=== PATIENT | female | born 1975 | race Caucasian/White ===

== ENCOUNTER → 2017-06-21 | Outpatient (CLI) | payer OTHER ==
--- NOTE | 2017-06-21 17:13 | RADIOLOGY REPORT (SQ) ---
EXAM DESCRIPTION: NM HIDA SCAN WITH CCK COMPLETED DATE/TIME: 06/21/2017 3:43 pm REASON FOR STUDY: ABD PAIN (R10.9) R10.9 UNSPECIFIED ABDOMINAL PAIN COMPARISON: Abdominal ultrasound 02/16/2016 RADIONUCLIDE AND DOSE: DOSAGE RADIONUCLIDE: 4.5 millicuries Tc99m Mebrofenin. DOSAGE CCK: 1.2 mcg DOSAGE MORPHINE: Not required. The route of agent administration: Intravenous TECHNIQUE: Serial imaging right upper quadrant up to 60 minutes following injection of radionuclide. CCK injected after gallbladder visualized. LIMITATIONS: None. FINDINGS: LIVER: Normal visualization without areas of photopenia. INTRAHEPATIC BILE DUCTS: Normal size and no delay in visualization. COMMON BILE DUCT: Normal visualization. GALLBLADDER: Normal visualization. Calculated ejection fraction of 16%. Normal range is greater th an 35%. PHYSICAL RESPONSE: Patients presenting complaint was reproduced. OTHER: No other significant finding. IMPRESSION: NO CYSTIC OR COMMON DUCT OBSTRUCTION. DEPRESSED GALLBLADDER EJECTION FRACTION. BILIARY DYSKINESIS. IV CHOLECYSTOKININ REPRODUCED THE PATIENT'S SYMPTOMS TECHNICAL DOCUMENTATION: JOB ID: [id number]- All Rights Reserved
== END ==
LOC: RAD 12:24
PROVIDERS: ATTEND Internal Medicine Gastroenterology
DX: R10.9 Unspecified abdominal pain (principal)
CPT/HCPCS: 78227; A9537; Q9969; J2805

== ENCOUNTER 2018-05-08 05:23 | Day surgery (SDC) | payer OTHER ==
[2018-05-05 10:40] LABS: HEMATOCRIT 42.4 % (36.0-47.0); HEMOGLOBIN 14.4 g/dL (12.0-15.5); MEAN CORPUSCULAR VOLUME 94 fl (80-97); PLATELET COUNT 310 10^3/uL (150-450); RED CELL DISTRIBUTION WIDTH 13.8 % (11.5-14.0); WHITE BLOOD COUNT 10.1 10^3/uL (4.0-10.5)
[2018-05-05 10:58] LABS: ALANINE AMINOTRANSFERASE 40 U/L (9-52); ALBUMIN 4.7 g/dL (3.5-5.0); ALKALINE PHOSPHATASE 88 U/L (38-126); ANION GAP 13 (5-19); ASPARTATE AMINO TRANSFERASE 34 U/L (14-36); BILIRUBIN,DIRECT 0.3 mg/dL (0.0-0.4); BILIRUBIN,TOTAL 0.5 mg/dL (0.2-1.3); BLOOD UREA NITROGEN 13 mg/dL (7-20); CALCIUM 9.8 mg/dL (8.4-10.2); CARBON DIOXIDE 26 mmol/L (22-30); CHLORIDE 105 mmol/L (98-107); GLUCOSE 85 mg/dL (75-110); POTASSIUM 4.3 mmol/L (3.6-5.0); SODIUM 143.7 mmol/L (137-145); TOTAL PROTEIN 7.7 g/dL (6.3-8.2)
[~2018-05-08 05:23] MED LIST: LACTATED RINGERS 1000 ML IV PRN; LIDOCAINE 0.5% INJ-PF (5 MG/ML) 50 ML SDV SUBCUT PRN
[2018-05-08] MEDS ORDERED: CEFAZOLIN 2 GM/D5W RTU 2 GM/50 ML RTUPB IV ONE (05:34)
[2018-05-08] MEDS ORDERED: BUPIVACAINE HCL 0.25 % INJ/PF (2.5 MG/1 ML) 30 ML VIAL ONE ×2 (06:36→09:50)
[2018-05-08] MEDS ORDERED: HYDROMORPHONE HCL INJ/PF 2 MG/ML AMPULE ONE (07:25)
[2018-05-08] MEDS ORDERED: ACETAMINOPHEN 1,000 MG/100 ML RTUPB IV ONE (07:25)
[2018-05-08] MEDS ORDERED: PROPOFOL INJ 200 MG/20 ML VIAL IV ONE (07:25)
[2018-05-08] MEDS ORDERED: ONDANSETRON HCL INJ/PF 4 MG/2 ML SDV ONE ×2 (07:25→14:36)
[2018-05-08] MEDS ORDERED: MIDAZOLAM 2 MG/2 ML INJ ONE (07:25)
[2018-05-08] MEDS ORDERED: EPHEDRINE SULFATE INJ 50 MG/1 ML AMPULE ONE (07:25)
[2018-05-08] MEDS ORDERED: METHYLENE BLUE 50 MG/10 ML AMPULE ONE (09:04)
[2018-05-08] MEDS ORDERED: FENTANYL CITRATE INJ/PF 100 MCG/2 ML AMPUL IV PRN ×3 (09:32)
[2018-05-08] MEDS ORDERED: ONDANSETRON HCL INJ/PF 4 MG/2 ML SDV IV PRN ×2 (09:32→10:22)
[2018-05-08] MEDS ORDERED: OXYCODONE-ACETAMINOPHEN 5-325 MG TABLET PO PRN ×3 (09:32→10:20)
[2018-05-08] MEDS ORDERED: DIPHENHYDRAMINE HCL 50 MG/ML VIAL IV PRN (09:32)
[2018-05-08] MEDS ORDERED: MEPERIDINE HCL/PF INJ 25 MG/1 ML DISP.SYRIN IV PRN (09:32)
[2018-05-08] MEDS ORDERED: PROMETHAZINE HCL INJ 25 MG/1 ML VIAL IV PRN ×3 (09:32→10:21)
[2018-05-08] MEDS ORDERED: PROMETHAZINE HCL INJ 25 MG/1 ML VIAL ONE (10:16)
[2018-05-08] MEDS ORDERED: OXYCODONE HCL IR 5 MG TABLET PO PRN (10:20)
[2018-05-08] MEDS: FENTANYL CITRATE INJ/PF 100 MCG/2 ML AMPUL ONE ×3 (10:20→10:30)
[2018-05-08] MEDS ORDERED: MORPHINE SULFATE 10 MG/ML INJ IV PRN (10:21)
[2018-05-08] MEDS ORDERED: NORMAL SALINE 1000 ML 1,000 ML IV ONE (10:30)
--- NOTE | 2018-05-08 10:40 | OPERATIVE REPORT E ---
Operative Report NAME: FRANCIS WHITT : 1975 AGE: 42Y DATE OF SURGERY: 05/08/2018 ROOM: PREOPERATIVE DIAGNOSES: 1. Menometrorrhagia unresponsive to medical therapy. 2. Chronic pelvic pain. 3. Stage IV endometriosis. POSTOPERATIVE DIAGNOSES: 1. Menometrorrhagia unresponsive to medical therapy. 2. Chronic pelvic pain. 3. Stage IV endometriosis. OPERATION: 1. Robotic total laparoscopic hysterectomy. 2. Left oophorectomy. 3. Cystoscopy. SURGEON: Emi Youngblood M.D. DIRECTOR OF CATH LAB: Trinidad Kaplan M.D. ANESTHESIA: General. ESTIMATED BLOOD LOSS: 100 mL. FLUIDS: Intravenous fluids 1500 mL and 100 mL clear urine at end of procedure. COMPLICATIONS: None. INDICATIONS FOR PROCEDURE: Patient is a 42-year-old, 1, para 1-0-0-1, who has had menometrorrhagia for several years with attempted multiple medical regimens without resolution of her symptoms. She has also had chronic pelvic pain with stage IV endometriosis previously where she had approximately a year ago right oophorectomy due to a large endometrioma on her right ovary. Patient desired definitive surgical management and treatment, including removal of her left ovary, which patient is aware that will put her in surgical menopause. Patient was counseled on robotic hysterectomy, and the counseling included, but not limited to, bleeding, infection, injury to surrounding organs or tissue, need of transfusion, possibility of exploratory laparotomy. Patient understood and consented to the procedure and agreed to proceed to the operating room. FINDINGS: Soft boggy uterus, adenomyosis like. Small inferior uterine fibroid approximately 1 cm in size though was pedunculated on the anterior uterine wall. Two surgically absent left and right fallopian tubes. Surgically absent right ovary. Normal left ovary and had multiple surgical clips previously attached to the left ovary, though was on the serosal aspect of the ovary; those were removed as well. PROCEDURE: Patient was taken to the operating room. General anesthesia was induced without difficulty. Patient was placed in dorsal lithotomy position, thoroughly prepped and draped in the usual sterile fashion. Roxana Hugger was placed to maintain control of core body temperature. Fay catheter was placed in the bladder. Heavy weighted speculum was inserted in the vaginal mucosa. Single-tooth tenaculum placed on the anterior lip of the cervix. Cervical os was dilated with Hegar dilators. Hegar dilators were used to dilate the cervix. Two [id number] stitches around 3 and 9 o'clock were placed with anchoring stitches prior to placing the VCare. The VCare manipulator was attached to the uterus with a cervical ring and anchored to the stitches on the right and the left. The weighted speculum was removed from the vaginal mucosa. The single-tooth tenaculum was removed from the anterior lip of the cervix. The sutures that were placed on the lateral aspect of the cervix were used for traction later and also were anchored within the VCare itself. A horizontal supraumbilical incision was performed. Veress needle was introduced without difficulty. Drop test was performed. Successful carbon dioxide was infused until pneumoperitoneum was established. Veress needle was removed. Infraumbilical incision was extended and a 12 mm trocar was inserted. Robotic laparoscope was placed in the abdominal cavity; please see the above findings. After intraperitoneal placement local anesthesia was used of 0.25% bupivacaine, was used at all sites and ports. Two 8 mm surgery ports were placed inferior to the umbilicus and lateral to the rectus abdominus muscle bilaterally. These ports were inserted in the abdominal cavity under direct visualization, one in the right lower and one in the left lower quadrant. Also an senior agricultural assistant port was inserted into the right upper quadrant. Prior to performing the hysterectomy the ureters on both sides, right and left, were both visualized and both had excellent peristalsis and were well in the visual field at all times. At this point the right aspect of the procedure was performed on the uterus where the right round ligament was cauterized and transected all the way down to the level of the uterine vessels. Of course there was no right ovary and no right fallopian tube that was removed because they were both surgically absent from previous procedure. The right side of the bladder flap was created without difficulty on the contralateral side. The left infundibulopelvic ligament was coagulated and transected using the vessel seal. The round ligament was cauterized and transected all the way down to the level of the uterine vessels. The bladder flap on this side was connected to the contralateral side. The bladder was pushed far away from the cervical ring. At this point anterior colpotomy was performed circumscribing the cervix in a circumferential manner, cauterizing, and transecting the colpotomy in a circumferential manner. Of course at every point of the procedure the ureters were both in visual pope and were well away from the surgical field at all times and they were both in normal peristalsis fashion. Once the ring was identified anteriorly the anterior colpotomy was performed in a circumferential manner. The uterus and the left ovary were removed and the vaginal cuff was irrigated at this time. Small blood vessels from the vaginal cuff were slightly oozing and thus were cauterized superficially. Then at this point the vaginal cuff was closed using the running 2-0 V-Loc suture. Attention was then turned to the ureters bilaterally and both were identified without any difficulty, peristalsing well away from the vaginal cuff, and they were both within a normal appearance. A survey of the lateral pelvic sidewalls revealed excellent hemostasis. At this point FloSeal was injected along the vaginal cuff for prophylactic measures for hemostasis. At this point attention was turned to below to perform the cystoscopy. The cystoscope was introduced without any difficulty. Bladder integrity was visualized. There were no foreign bodies or injuries to the bladder. There was excellent efflux from both ureteral orifices with strong efflux of flow identified with methylene blue. The methylene blue was given during the vaginal cuff closure. At this point, once the cystoscopy portion was done, the cystoscope was removed, the robot was undocked, the abdomen was desufflated, all trocars were removed. The 12 mm supraumbilical incision was repaired with a UR6 to reapproximate the fascia. The remaining incisions were closed with 4-0 Monocryl in a horizontal mattress fashion and then in a running continuous fashion in the subcuticular fascia for the supraumbilical incision and the right upper quadrant incision. All sponge, lap, and needle counts were correct x2. The patient did receive preoperative antibiotics. Fay bag was noted to be emptying clear urine at the end of the procedure. Again, hemostasis was obtained throughout the whole procedure. The patient tolerated the procedure well and was sent to the recovery room in excellent condition. DICTATING PHYSICIAN: Emi Youngblood MD [id number] PHY#: [id number] ID: [id number] JOB#: [id number] ACCT: [id number] cc:Emi Youngblood >
[2018-05-08] MEDS ORDERED: DEXAMETHASONE SOD PHOSPHATE INJ 4 MG/1 ML VIAL ONE (14:36)
[2018-05-08] MEDS ORDERED: ROCURONIUM BROMIDE INJ 50 MG/5 ML VIAL IV ONE (14:36)
[2018-05-08] MEDS ORDERED: METOCLOPRAMIDE HCL INJ/PF 10 MG/2 ML SDV ONE (14:36)
[2018-05-08] MEDS ORDERED: NEOSTIGMINE METHYLSULFATE 10 MG/10 ML VIAL ONE (14:36)
[2018-05-08] MEDS ORDERED: KETOROLAC TROMETHAMINE 60 MG/2 ML SDV ONE (14:36)
[2018-05-08] MEDS ORDERED: GLYCOPYRROLATE 1 MG/5 ML SYRINGE ONE (14:36)
[2018-05-08 15:02] VITALS: BP 121/86
== END 2018-05-08 15:28 | disposition home or self-care (01) ==
LOC: OROUT 05:23 → 2S 11:27 → OROUT 15:28
PROVIDERS: ATTEND Obstetrics & Gynecology
DX: N72 Inflammatory disease of cervix uteri (principal); N80.0 Endometriosis of uterus; D25.1 Intramural leiomyoma of uterus; D25.2 Subserosal leiomyoma of uterus; N83.12 Corpus luteum cyst of left ovary; N92.1 Excessive and frequent menstruation with irregular cycle; F17.210 Nicotine dependence, cigarettes, uncomplicated; K21.9 Gastro-esophageal reflux disease without esophagitis
CPT/HCPCS: 58570; S2900; 36415; 80053; 81025; 840; 85027; 86850; 86900; 86901; 88307; J0131; J0690; J1100; J1170; J1885; J2250; J2270; J2405; J2550; J2704; J2765; J3010; J3490; Q9968